=== PATIENT | male | born 1955 | race Caucasian/White ===

== ENCOUNTER 2020-12-09 08:28 | Emergency (ER) | payer BC, SELFPAY ==
[2020-12-09] VITALS (12 sets, daily range): BP systolic 148–211; BP diastolic 93–106; PULSE 89–118; RESP 17–18; TEMP 36.3; O2SAT 97–100
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
--- NOTE | 2020-12-09 08:50 | ECG_ITS ---
Measurements Intervals [place] Rate: 118 P: 43 MN: 169 QRS: -76 QRSD: 130 T: 11 QT: 311 QTc: 437 Interpretive Statements SINUS TACHYCARDIA RIGHT BUNDLE BRANCH BLOCK LEFT ANTERIOR FASCICULAR BLOCK ABNORMAL ECG Electronically Signed On 12-09-2020 10:22:49 CDT by Mark De Anda D.O.
[2020-12-09] MEDS: LABETALOL HCL INJ 100 MG/20 ML VIAL 20 MG IV PUSH (09:19)
[2020-12-09 09:29] LABS: Basophils Absolute Auto 0.1 K/mm3 (0.0-0.1); Basophils Percent Auto 0.5 % (0.2-1.2); Eosinophils Absolute Auto 0.2 K/mm3 (0-0.3); Eosinophils Percent Auto 2.1 % (0-4.4); Hematocrit 46.5 % (42.0-52.0); Hemoglobin 15.9 g/dL (14.0-18.0); Immature Granulocyte Absolute 0.02 K/mm3 (0.00-0.031); Immature Granulocyte Percent A 0.2 % (0-0.5); Lymphocytes Absolute Auto 0.82 K/mm3 (0.9-3.2); Lymphocytes Percent Auto 8.2 % (18.3-44.2); Mean Corpuscular HGB Conc 34.2 g/dl (32-36); Mean Corpuscular Hemoglobin 29.4 pg (26-34); Mean Platelet Volume 9.9 fl (7.4-10.4); Monocytes Absolute Auto 0.5 K/mm3 (0.1-0.6); Monocytes Percent Auto 4.9 % (2.6-8.5); Neutrophils Absolute Auto 8.5 K/mm3 (1.3-6.7); Neutrophils Percent Auto 84.1 % (45.5-73.1); Platelet Count Result 270 k/mm3 (150-375); Red Blood Count 5.41 M/mm3 (4.6-6.20); Red Cell Distribution Width 13.5 % (11.5-14.5)
[2020-12-09 09:38] LABS: Add Urine Microscopic? YES; Appearance Urine Clear (Clear); Bilirubin Urine Negative (Negative); Blood Urine Negative (Negative); Color Urine Yellow (Yellow); Glucose Urine UA 3+ mg/dL (Negative); Ketones Urine Negative (Negative); Leukocyte Esterase Ur Negative LEU/UL (Negative); Mucus Urine Rare /lpf; Nitrate Urine Negative (Negative); Protein Urine 3+ mg/dL (Negative); RBC Urine 0-2 /hpf (0-2); Specific Grav Ur 1.024 (1.001-1.035); Squamous Epithelial Cell Urine Rare /hpf (Few); Urobilinogen Urine Negative mg/dL (<2.0)
[2020-12-09 09:41] LABS: Alanine Aminotransferase 103 U/L (4-50); Albumin Level 4.6 g/dL (3.5-5.1); Alkaline Phosphatase 78 U/L (38-126); Anion Gap 7 mmol/L (8-16); Aspartate Amino Transferase 77 U/L (17-59); Bilirubin,Total 0.5 mg/dL (0.2-1.3); Blood Urea Nitrogen 18 mg/dL (9-20); Calcium 9.7 mg/dL (8.4-10.2); Carbon Dioxide 31 mmol/L (22-30); Chloride 102 mmol/L (98-107); Estimated CRCL calculation 79 ml/min; Estimated Glomerular Filt Rate > 60; Glucose 272 mg/dL (75-110); Potassium 4.4 mmol/L (3.4-5.0); Sodium 140 mmol/L (137-145)
[2020-12-09 09:53] LABS: Troponin I < 0.012 ng/mL (0.000-0.034)
--- NOTE | 2020-12-09 10:46 | PC.NURSE ---
pt refuses pain meds
--- NOTE | 2020-12-09 10:49 | PC.NURSE ---
pt refused ordered dose of 50 mcg. pt states he does not want to get addicted . rn educated pt and family that 1 dose given in hospital for acute pain would not lead to addiction. 50 mcg fentanyl wasted with nurse consuelo bates
--- NOTE | 2020-12-09 11:10 | PC.NURSE ---
Bedside report from off-going RN. Patient going to CT
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
== END 2020-12-09 12:24 | disposition home or self-care (01) ==
PROVIDERS: Emergency Provider Family Medicine; PCP Internal Medicine Geriatric Medicine
DX: S39.012A Strain of muscle, fascia and tendon of lower back, initial encounter (principal); I10 Essential (primary) hypertension; R00.0 Tachycardia, unspecified; I45.2 Bifascicular block; V49.40XA Driver injured in collision with unspecified motor vehicles in traffic accident, initial encounter
CPT/HCPCS: 36415; 74177; 80053; 81001; 84443; 84484; 85025; 87086; 93005; 96374; 99284; Q9967

== ENCOUNTER 2025-08-08 00:25 | Day surgery (SDC) | payer BC, MEDICARE, SELFPAY ==
[2025-07-31 09:14] VITALS: BMI 35.4
--- OUTSIDE RECORDS SUMMARY | 2025-08-08 00:27 | XMS_ITS | Clinical Summary ---
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 excellent. Findings: Non-bleeding external and internal hemorrhoids were found during retroflexion. The hemorrhoids were small. A few small-mouthed diverticula were found in the sigmoid colon.There was no evidence of diverticular bleeding. A 3 mm polyp was found in the ascending colon. The polyp was sessile. The polyp was removed with a jumbo cold forceps. Resection andretrieval were complete. A 3 mm polyp was found in the sigmoid colon. The polyp was sessile.The polyp was removed with a jumbo cold forceps. Resection and retrieval were complete. The perianal exam findings include non-thrombosed externalhemorrhoids and skin tags. Electronically signed by Ifeanyi Ritter M.D. Ifeanyi Cortes M.D. 12/01/2017 11:35:23 AM Number of Addenda: 0 Note Initiated On: 12/01/2017 10:58 AM Procedure Code(s): --- Professional --- 00946, Colonoscopy, flexible; with biopsy, single or multiple Diagnosis Code(s): --- Professional --- Z12.11, Encounter for screening for malignant neoplasm of colon K64.8, Other hemorrhoids D12.2, Benign neoplasm of ascending colon D12.5, Benign neoplasm of sigmoid colon K57.30, Diverticulosis of large intestine without perforation orabscess without bleeding CPT copyright 2014 [employer]. All rights reserved. The codes documented in this report are preliminary and upon clinical coder reviewmay be revised to meet current compliance requirements. Recognized by the [place] [employer] for promoting quality in endoscopy Ifeanyi Cortes MD ENDOSCOPY PROCEDUR ES Final Result from Last 3 Months or Most Recently Relevant to Health Maintenance Insurance [facility] Litographs ACCESS OOS MEDICARE Litographs ACCESS OOS Member Subscriber Plan / Payer (Ef fective 2016-Present) Name:Gwyn Garcia Relation to Subscriber:Self Name:Gwyn Garcia Payer ID:[id number] (NAIC) Type:[employer]IANCE Address: [address] [place] [id number] MEDICARE Advance Directives For more information, please contact: [phone] Documents on File Type Date Recorded 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 [address] [place] [address] Otolaryngology 05/23/17 Ifeanyi Martinez MD [address] [place] [address] Consulting Physician Gastroenterology 03/07/18 Bradford Davies OD [address] [facility] [address] [facility] [address] [place] [address] Optometry 01/16/25
--- OUTSIDE RECORDS SUMMARY | 2025-08-08 00:27 | XMS_ITS | Encounter Summary ---
Author Organization [facility] Address [address] [place] [address] Phone Care Team Providers Care Vp Home Health Name Role Phone Alicia Beebe MD Primary Care Provider + [phone] Michael Hamlin MD Unavailable [phone] Donald Gonzalez MD Unavailable Ifeanyi Martinez MD Unavailable + Bradford Scales OD Unavailable [phone] Bradford Davies OD Unavailable [phone] Encounter Details Date Type Department Care Team (Late st Contact Info) Description 11/06/2022 Orders Only [facility] [address] [place] [address] Scanning, Provider Social History Tobacco Use Types Packs/Day Years Used Date Smoking Tobacco: Never Smokeless Tobacco: Never Alcohol Use Standard Drinks/Week Comments No 0 (1 standard drink = 0.6 oz pur e alcohol) PHQ-2 Answer Date Recorded PHQ-2 Total Score (If total score is 3 or more points, staff should administer the PHQ-9) 0 05/20/2022 Sex and Gender Information Value Date Recorded Sex Assigned at Not on file Legal Sex Male 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 Gender Identity Not on file Sexual Orientation Not on file 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 Not on file Not on file Not on file documented as of this encounter Plan of Treatment Not on file documented as of this encounter Procedures Procedure Name Priority Date/Time Associated Diagnosis Comments PROCEDURE - RESULT 11/06/2022 documented in this encounter Results * PROCEDURE - RESULT (11/06/2022) us Provider Scanning Final Result documented in this encounter Visit Diagnoses Not on filedocumented in this encounter Care Teams Vp Home Health Relationship Specialty Start Date End Date Alicia Beebe MD PCP - General 12/26/16 Michael Hamlin MD [address] [facility] DEPT [address]ARYNGOLOGY[address] [address] Otolaryngology 05/23/17 Donald Gonzalez MD [address] [facility] DEPT OTOLARYNGOLOGY, [address] [address] Otolaryngology 05/23/17 Ifeanyi Martinez MD [address] [address] [place] [address] Consulting Physician Gastroenterology 03/07/18 Bradford Scales OD [address] [place] [address] Optometry 11/11/18 01/15/25 Bradford Davies OD [address] [facility] [address] [facility] [address] [place] [address] Optometry 01/16/25 documented as of this encounter
[2025-08-08 07:08] VITALS: BP 117/67; PULSE 87; RESP 16; TEMP 36; O2SAT 100; BMI 33.9
--- NOTE | 2025-08-08 07:16 | WPDANESEPPF ---
Anes - Initial Pre Proc Eval Procedure: Operation Date: 08/08/25 08:00 Proposed Procedures p Screening Colonoscopy - Ifeanyi Ritter MD Date/Time: 08/08/25 07:16 Surgeon: Ifeanyi Ritter MD Pre Op Diagnosis: Personal history of adenomatous and serrated colon Patient Data Age: 70 Gender: M Height: 1.75 m Weight: 104.3 kg Last Vital Signs Temp 36.0 C L 08/08/25 07:08 Pulse 87 08/08/25 07:08 Resp 16 08/08/25 07:08 BP 117/67 08/08/25 07:08 Pulse Ox 100 08/08/25 07:08 O2 Del Method Room Air 08/08/25 07:08 Allergies Allergy/AdvReac Type Severity Reaction Status Date / Time No Known Allergies Allergy Verified 08/08/25 07:06 Home Medications ?Medication ?Instructions ?Recorded ?Confirmed ?Type atenolol 50 mg tablet 50 mg PO DAILY 07/31/25 08/08/25 History empagliflozin 10 mg tablet 10 mg PO DAILY 07/31/25 08/08/25 History (Jardiance) glipizide 10 mg tablet 10 mg PO BID 07/31/25 08/08/25 History lisinopril 20 1 tablet PO DAILY 07/31/25 08/08/25 History mg-hydrochlorothiazide 12.5 mg tablet rosuvastatin 20 mg tablet 20 mg PO DAILY 07/31/25 08/08/25 History sitagliptin phosphate 50 mg tablet 50 mg PO DAILY 07/31/25 08/08/25 History (Januvia) Patient hx anesthesia problems: none Family hx anesthesia problems: none Results Review: All pre-operative results and documents have been reviewed as part of the pre-operative evaluation. 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 Snoring Obesity Social History Social History Smoking status: Never smoker Alcohol intake: never Substance use: never Substance use type: does not use Living arrangements: with family Gender identity (if verbalized by the patient): Male Spiritual care concerns: No Anes - Eval Final PreProcedure Day of Procedure 08/08/25 07:16 Patient weight: obese Heart: regular rate and rhythm Lungs: clear to auscultation Airway: Mallampati scale class II and special considerations large neck and poor dentition Neurological: alert and oriented Last oral intake: >/= 8 hours ASA classification: III Emergent: no Anesthetic plan: proceed Anesthesia type and monitoring: general GIVS and standard monitoring Results Review: All pre-operative results and documents have been reviewed as part of the pre-operative evaluation. Informed Consent: The patient's anesthetic plan and its attendant risks and benefits were discussed with the patient/family/POA. Questions were solicited and answers provided to the satisfaction of the patient/family/POA.
[2025-08-08] MEDS: LACTATED RINGERS 1,000 ML 150 ML IV CONT (07:21)
--- NOTE | 2025-08-08 08:04 | PM.HPGS ---
History of Present Illness History of Present Illness Consent: Risks, benefits, and alternatives have been discussed and questions answered. Patient agrees to proceed with procedure. 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 Snoring Obesity Social History Social History Smoking status: Never smoker Alcohol intake: never Substance use: never Substance use type: does not use Living arrangements: with family Gender identity (if verbalized by the patient): Male Spiritual care concerns: No Meds Home Medications and Allergies Home Medications ?Medication ?Instructions ?Recorded ?Confirmed ?Type atenolol 50 mg tablet 50 mg PO DAILY 07/31/25 08/08/25 History empagliflozin 10 mg tablet 10 mg PO DAILY 07/31/25 08/08/25 History (Jardiance) glipizide 10 mg tablet 10 mg PO BID 07/31/25 08/08/25 History lisinopril 20 1 tablet PO DAILY 07/31/25 08/08/25 History mg-hydrochlorothiazide 12.5 mg tablet rosuvastatin 20 mg tablet 20 mg PO DAILY 07/31/25 08/08/25 History sitagliptin phosphate 50 mg tablet 50 mg PO DAILY 07/31/25 08/08/25 History (Januvia) Allergies Allergy/AdvReac Type Severity Reaction Status Date / Time No Known Allergies Allergy Verified 08/08/25 07:06 Vital Signs Vital Signs - 24 hr 08/08/25 07:08 Temperature 96.8 F L Pulse Rate 87 Respiratory Rate 16 Blood Pressure 117/67 Pulse Oximetry 100 Oxygen Delivery Room Air Exam Const: General: comfortable and no acute distress HENMT: Face/Nose/Sinus: Normal nares present Eyes: General: appearance normal, both eyes and all related structures Neck: Neck: no JVD Resp: Auscultation: clear to auscultation bilaterally Cardio: Rate: regular rate Rhythm: regular rhythm GI: Inspection: non-distended GI Palp: Yes Soft to palpation Skin: General skin exam: normal color Extrem: General: normal to inspection Psych: Mental Status: mental status grossly normal Assessment and Plan Assessment and plan (1) Colon cancer screening: Code(s): Z12.11 - Encounter for screening for malignant neoplasm of colon Status: Acute Assessment and Plan: colonoscopy
[2025-08-08 08:23] VITALS: BP 95/45; PULSE 76; RESP 14; O2SAT 95
[2025-08-08 08:33] VITALS: BP 114/64; PULSE 90; RESP 20; O2SAT 95
[2025-08-08 08:43] VITALS: BP 119/62; PULSE 79; RESP 24; O2SAT 79
== END 2025-08-08 09:05 | disposition home or self-care (01) ==
PROVIDERS: PCP Internal Medicine Geriatric Medicine; Referring Provider Internal Medicine Geriatric Medicine; Visit Provider Internal Medicine Gastroenterology
PROC: 0DJD8ZZ Inspection of Lower Intestinal Tract, Via Natural or Artificial Opening Endoscopic (ICD-10-PCS; CPT 45378; principal; 2025-08-08 08:00)
DX: Z12.11 Encounter for screening for malignant neoplasm of colon (principal); K57.30 Diverticulosis of large intestine without perforation or abscess without bleeding; R06.83 Snoring; E66.9 Obesity, unspecified; Z68.34 Body mass index [BMI] 34.0-34.9, adult; Z79.84 Long term (current) use of oral hypoglycemic drugs; Z86.0100 Personal history of colon polyps, unspecified; Z85.22 Personal history of malignant neoplasm of nasal cavities, middle ear, and accessory sinuses
CPT/HCPCS: 45378; 82948; J2003; J2704; J7120